=== PATIENT | female | born 1930 | race Caucasian/White ===

== ENCOUNTER 2018-02-11 06:35 | Observation (INO) | payer OTHER ==
[~2018-02-11] VITALS: Ht 152.4 cm; Wt 56.5 kg
--- NOTE | ~2018-02-11 | DSS ---
[facility] [place] [address] SHORT STAY SUMMARY Name: CHEMA DUENAS Room #: 205-P [facility] Brian Mackenzie#: [id number] Admission: 02/11/18 Attend Phys: Michelle Mccarthy MD, FA Discharge: 02/12/18 Date of : 02/24/30 Report #: [id number] THIS REPORT FOR: //name// CC: MICHELLE Heart DATE OF SERVICE: 02/12/2018 DISCHARGE DIAGNOSES: 1. Unstable angina. 2. Coronary artery disease. 3. Sick sinus syndrome. 4. Hyperlipidemia. 5. Atrial arrhythmias. 6. History of orthostatic hypotension. 7. Chronic back pain. CONSULTANTS: None. PROCEDURES: Left heart catheterization with placement of a single drug-eluting stent in the circumflex artery via the femoral approach. HISTORY OF PRESENT ILLNESS: The patient is an 87-year-old white female who was brought to the outpatient department for repeat cardiac catheterization. The patient has an extensive past medical history. She has had multiple stents in the past. She actually had a stent placed in her right coronary artery by Dr. Negrete at [facility] in 2008. She had a stent placed in her circumflex artery by Dr. Srinivasan at [facility] in 2009. She had previous stents placed in her LAD. In 2009, she was seen by Dr. Peres and had permanent pacemaker inserted for sick sinus syndrome. Her last heart catheterization in [address] Flynn showed all the stents were widely patent. Recently, she has been followed by Dr. Case. Her last nuclear stress test in 2014 showed no evidence of ischemia. However, recently she has been having frequent chest pain. It can occur at rest or with exertion. It does make her short of breath. It is usually relieved with nitroglycerin. Due to frequent chest pain, history of coronary artery disease and medical therapy, I recommended repeat cardiac catheterization. PAST MEDICAL HISTORY: Otherwise significant for back surgery, cholecystectomy, hemicolectomy, hernia repair, hysterectomy. She had a history of hypertension, hyperlipidemia. In the past, she had an episode of orthostatic hypotension, she has a history of hypothyroidism, chronic back pain. She actually had a recent nerve stimulator implanted in her back. She has had carpal tunnel surgery, cataract surgery. [facility] [address] [place] [address] SHORT STAY SUMMARY Name: CHEMA DUENAS Room #: 205-P [facility] Brian Mackenzie#: [id number] Admission: 02/11/18 Attend Phys: Michelle Mccarthy MD, FA Discharge: 02/12/18 Date of : 02/24/30 Report #: [id number] MEDICATIONS: On admission consisted of aspirin, Lipitor, Neurontin, hydrocodone, Imdur, Synthroid. She takes linaclotide for constipation, midodrine, Protonix, sotalol. ALLERGIES AND INTOLERANCES: She had an intolerance of SULFA DRUGS. PHYSICAL EXAMINATION: GENERAL: Elderly, frail-appearing female. VITAL SIGNS: Blood pressure 128/78, pulse 72. HEENT: Mucous members are moist. NECK: Veins nondistended. CHEST: Clear to auscultation. CARDIAC: Regular rate and rhythm. ABDOMEN: Soft. EXTREMITIES: No edema. SKIN: Warm and dry. NEUROLOGIC: Nonfocal. LABORATORY DATA: Her ECG showed an atrial paced rhythm with a first-degree AV block. Her lab work, sodium 140, potassium 4.4. Her creatinine was 0.8. Her cholesterol was 149, triglyceride 127, HDL 49, LDL 75. White blood cell count 6.2, hemoglobin 12.5. HOSPITAL COURSE: The patient was brought to the outpatient department. I performed a left heart catheterization from the right femoral artery. She was found to have normal left ventricular function. The stent in the proximal and mid LAD had no restenosis. The circumflex appeared to have a proximal 80% eccentric narrowing prior to stent, which appeared to be patent. The right coronary artery had a stent in its ostium that appeared to have a 50% restenosis. A flush injection was performed of this stent. She was then given heparin. She had been started on Plavix a day prior to the procedure. I then placed a single drug-eluting stent in the proximal circumflex. She tolerated this well. An Angio-Seal was placed. Following procedure, she had no significant chest pain, shortness of breath, arrhythmias. She did have some oozing from her right groin. She remained at bed rest. The following day, she was getting up with assistance, had no significant chest pain or complaints. The patient was discharged on her home medications that included aspirin 81 mg a day, Lipitor 40 mg a day, Neurontin 300 mg a day, hydrocodone as needed for back pain. I did suggest she discontinue the Imdur at this time. She was to continue Synthroid 50 mcg a day, linaclotide for constipation. Her blood pressure was elevated and I therefore suggested she discontinue the small dose of midodrine. She has nitroglycerin to take as needed for chest pain. She was to continue Protonix 40 mg a day, sotalol 40 mg twice a day. She was given a new prescription for Plavix 75 mg a day, ____ take for up to one year following placement of the drug-eluting stent. She was discharged to return to the care of Dr. Heart for routine medical care. She is scheduled to see me in my [address] [place] [address] SHORT STAY SUMMARY Name: CHEMA DUENAS Room #: 205-P [facility] Biran MLanny.#: [id number] Admission: 02/11/18 Attend Phys: Michelle Mccarthy MD, FA Discharge: 02/12/18 Date of : 02/24/[birth year] Report #: [id number] [facility] on 03/08/2018. Her prognosis is guarded due to multivessel coronary artery disease and advanced age. She is not a candidate for cardiac rehabilitation since she ambulates with a walker. The patient was to contact my office if she had recurrent chest pain, shortness of breath or bleeding. She will continue to have her pacemaker checked in the device clinic with my office. At the time of discharge, she had a blood pressure of 140/60, pulse of 70 and she was afebrile. <ELECTRONICALLY SIGNED> By: Michelle Mccarthy MD, [facility] 02/15/18 1821 0812 0845 Michelle Mccarthy MD, FAC /nt
--- NOTE | ~2018-02-11 | EKG ---
[place] [address] [facility] [place] [address] ELECTROCARDIOGRAM REPORT Name: CHEMA DUENAS Room #: REG [facility]#: [id number] Admission: 02/11/18 Attend Phys: Garret Mccarthy MD, FA Discharge: Date of : 02/24/30 Report #: [id number] THIS REPORT FOR: //name// [facility] Test Date: 2018-02-11 Test Time: 07:31:18 Pat Name: CHEMA DUENAS Department: Room: Gender: F Fruit Dumper: : 1930 Requested By: Garret Mccarthy Order Number: [id number] MD: Abran Davis Measurements Intervals [place] Rate: 74 P: [place]: 167 QRS: 30 QRSD: 99 T: 48 QT: 433 QTc: 481 Interpretive Statements Atrial-paced complexes with occasional atrial premature complexes Borderline low voltage, extremity leads Compared to ECG 08/09/2012 16:04:56 No significant change was found Electronically Signed On 02-11-2018 8:19:54 CDT by Abran Davis [email or web address] <ELECTRONICALLY SIGNED> By: Abran Davis MD, [facility] 02/11/18 0819 0 0 Abran Davis MD, [facility] /EPI
--- NOTE | ~2018-02-11 | CATHLAB ---
[facility] [place] [address] INVASIVE PROCEDURE REPORT Name: CHEMA DUENAS Room #: 205-P ADM IN .R.#: [id number] Admission: 02/11/18 Attend Phys: Garret Mccarthy MD Discharge: Date of : 02/24/30 Date of Service: 02/11/18 1354 Report #: [id number] THIS REPORT FOR: //name// APPROVED REPORT Study performed: 02/11/2018 07:50:37 Patient Details Patient Status: Out-Patient Room #: The patient is a 87 year-old female Event Personnel Garret Mccarthy District Administrative Assistant, Pamela Salgado, Garret Almendarez, Ella Roman Monitor, Mary, Herlinda RN RN, John Bolanos RN personnel interviewer Performed cath pciArt Access - R femoral artery* 31047 Initial Mod Sed Same Phys/QHP Gr5y [id number] 38827 Mod Sed Same Phys/QHP Ea 978367 Left Heart Cath w/or w/o Coronaries [id number] [facility] Place w/wo Plasty Single CIRC 726009 Hemostasis w/ Angioseal Indication Unstable angina Risk Factors Arterial Hypertension, Hypercholesterolemia Previous Procedures/Diagnoses Previous PCI Procedure Narrative The patient was brought electively to the Cardiac Catheterization Laboratory and was prepped and draped in a sterile manner. The right femoral was infiltrated with 1% Lidocaine subcutaneous anesthesia. A 6 fr sheath was inserted into the right femoral artery. Coronary angiography was performed using coronary diagnostic catheters. The right coronary system was accessed and visualized with a 3drc catheter. The left coronary system was accessed and visualized with a Diagnostic catheter. The left ventricle was accessed and visualized with a hand injection through jr4 catheter. Left ventricular/Aortic Valve gradient assessed via catheter pullback. Left ventriculogram was performed in STOCK projection. Pre-demployment femoral angiogram was performed . Closure device was deployed with a 6 Fr Angioseal. The patient tolerated the procedure well and there were no [facility] [address] [place] [address] INVASIVE PROCEDURE REPORT Name: CHEMA DUENAS Alpesh Room #: 205-P [facility] IN ..#: [id number] Admission: 02/11/18 Attend Phys: Garret Mccarthy MD Discharge: Date of : 02/24/30 Date of Service: 02/11/18 1354 Report #: [id number] complications associated with the procedure. There was no hematoma. Intraoperative Conscious Sedation Sedation start time: 08:09 Case end Time: 09:15 Versed 2 mg Fluoro Time: 10.24 minutes Dose: DAP 5643.90 cGycm2 647 mGy Contrast Type and Amount: Visipaque 170 ml Coronary Angiography The patient's coronary anatomy is right dominant. Diagnostic Cath Left Main 0% stenosis LAD proximal stent had 30% restenosis. Mid stent had no restenosis Circumflex proximal calcified eccentric 80% stenosis noted. Mid stent had no restenosis Right Coronary ostial stent appeared to have 50% restenosis Left Ventriculography The left ventricle is normal in size with normal contractility. The left ventricular ejection fraction is estimated to be 55-60%. Left ventricular wall motion abnormalities are not present. There is no mitral insufficiency. Unable to cannulate rca with jr4 catheter because of abnormal takeoff, and ostial location of stent. 3drc catheter was used and able to perform flush injection of rca. Unable to advance pigtail catheter over wire into left ventricle because of tortuous aorta. Therefore performed hand injection through jr4 catheter to perform left ventriculography. Hemodynamics The aortic pressure is 182/72 mmHg with a mean of 87 mmHg. The left ventricular pressure is 166/6 mmHg with a mean of mmHg. The left ventricular end diastolic pressure is 15 mmHg. There was no gradient across the aortic valve upon pullback. Pullback from the left ventricle to the aorta revealed no gradient across the aortic valve. PCI Technique Lesion Anticoagulation was achieved with Heparin. Patient was preloaded with Plavix. Percutaneous coronary intervention was performed on the proximal circumflex artery segment. The lesion stenosis prior to [facility] [address] [place] [address] INVASIVE PROCEDURE REPORT Name: HENRIQUECHEMA Room #: 205-P [facility] IN M.R.#: [id number] Admission: 02/11/18 Attend Phys: Garret Mccarthy MD Discharge: Date of : 02/24/30 Date of Service: 02/11/18 1354 Report #: [id number] intervention was 80% with HERMELINDA 3 flow. A 6 fr xb3.0 Guide Catheter was used to engage the lm ostium. A bmw Interventional Guidewire was used to cross the lesion. BALLOON DILATION A Balloon catheter 2.5 x 10 mm was inserted and inflated up to 14atm for 10seconds. Repeat angiography revealed the following post-dilatation results: 50% stenosis. STENT DEPLOYMENT A drug-eluting stent 15mm x 2.75 was inserted and inflated up to 11atm for 15seconds. Repeat angiography revealed the following post-stent deployment results: 0% stenosis. Final angiography reveals 0 % stenosis with HERMELINDA 3 flow. Conclusion 1. no significatn restenosis of stents in the proximal and mid lad 2. no restenosis of stent in the mid circumflex, although 80% stenosis noted in the proximal circumflex 3. mild restenosis noted of stent in the ostium of the rca 4. successful placement of a drug eluting stent in the proximal circumflex Recommendations Cardiac Rehabilitation Referral Aggressive Medical Therapy <ELECTRONICALLY SIGNED> By: Garret Mccarthy MD, [facility] 02/11/18 1354 1354 1354 Garret Mccarthy MD, FACC /INF
--- NOTE | ~2018-02-11 | EKG ---
[address] [address] ELECTROCARDIOGRAM REPORT Name: CHEMA DUENAS Room #: 205-P [facility] M.R.#: [id number] Admission: 02/11/18 Attend Phys: Garret Mccarthy MD, FA Discharge: Date of : 02/24/30 Report #: [id number] THIS REPORT FOR: //name// [facility] Test Date: 2018-02-11 Test Time: 10:42:37 Pat Name: CHEMA DUENAS Department: Room: 205 P Gender: F Dynamic Balancer: Zakiya BEDOYA : 1930 Requested By: Garret Mccarthy Order Number: [id number] MD: Abran Davis Measurements Intervals [place] Rate: 75 P: ID: 179 QRS: 47 QRSD: 95 T: 49 QT: 423 QTc: 473 Interpretive Statements Atrial-paced complexes Abnormal R-wave progression, early transition Compared to ECG 02/11/2018 07:31:18 Atrial premature complex(es) no longer present Electronically Signed On 02-11-2018 16:53:03 CDT by Abran Davis [email or web address] <ELECTRONICALLY SIGNED> By: Abran Davis MD, [facility] 02/11/18 6965 1042 1042 Abran Davis MD, [facility] /EPI
--- NOTE | ~2018-02-11 | EKG ---
[address] [address] ELECTROCARDIOGRAM REPORT Name: CHEMA DUENAS Room #: 205-P [facility] M.R.#: [id number] Admission: 02/11/18 Attend Phys: Garret Mccarthy MD, FA Discharge: Date of : 02/24/30 Report #: [id number] THIS REPORT FOR: //name// [facility] Test Date: 2018-02-12 Test Time: 06:55:57 Pat Name: CHEMA DUENAS Department: Room: 205 P Gender: F Stogie Packer: BS : 1930 Requested By: Garret Mccarthy Order Number: [id number] MD: Abran Davis Measurements Intervals [place] Rate: 75 P: [place]: 167 QRS: 29 QRSD: 97 T: 46 QT: 475 QTc: 531 Interpretive Statements Atrial-paced complexes Borderline low voltage, extremity leads Abnormal R-wave progression, early transition Prolonged QT interval Compared to ECG 02/11/2018 10:42:37 Prolonged QT interval now present Electronically Signed On 02-12-2018 8:14:47 CDT by Abran Davis [email or web address] <ELECTRONICALLY SIGNED> By: Abran Davis MD, [facility] 02/12/18 0814 0655 0655 Abran Davis MD, [facility] /EPI
[~2018-02-11 06:35] MED LIST: ADULT LOW DOSE81 MG PO; ALLEGRA180 MG PO; AMIGESIC500 MG PO; ASPIRIN EC81 M1 PO; CALCIUM 500 +1 EAC5 PO; GAVISCON500 MG PO; ISOSORBIDE DINI30 MG PO; LIPITOR40 MG PO; MULTI-VITAMIN1 EAC5 PO; MULTIPLE VITAM1 EAC3 PO; NAPROSYN250 MG; NEURONTIN 300300 M1 PO; PLAVIX 75 MG TA75 MG PO; PROTONIX40 M2 PO; RECLAST 55 MG/100 M IV; SORINE80 MG PO; SYNTHROID50 MCG PO; TOPROL XL25 MG PO; VAGIFEM25 MCG PO; [UNRECOGNIZED DRUG - OTHER] PO
[2018-02-11 07:32] VITALS: BP 187/84
[2018-02-11] MEDS ORDERED: NORCO 5-325 TA1 EACH PO (07:42)
[2018-02-11] MEDS ORDERED: NEURONTIN 300300 M1 PO (07:44)
[2018-02-11] MEDS ORDERED: ANUSOL-HC25 MG RECTAL (07:45)
[2018-02-11] MEDS ORDERED: IMDUR 30 MG TAB30 M1 PO (07:46)
[2018-02-11] MEDS ORDERED: LINZESS145 MCG PO (07:46)
[2018-02-11] MEDS ORDERED: MIDODRINE HCL 55 M1 PO (07:47)
[2018-02-11] MEDS ORDERED: NITROGLYCERIN0.4 MG PO (07:48)
[2018-02-11] MEDS ORDERED: PROTONIX40 M1 PO (07:48)
[2018-02-11] MEDS ORDERED: SORINE 80 MG TA80 M1 PO (07:49)
[2018-02-11 08:04] LABS: HEMATOCRIT 38.1 % (37.0-47.0); HEMOGLOBIN 12.5 gm/dL (12.0-15.0); MCH 27.1 pg (26.0-34.0); MCHC 32.9 g/dL (28.0-37.0); MCV 82.4 fL (80.0-100.0); RBC 4.62 mil/uL (4.20-5.00); RDW 14.6 % (10.5-14.5); WBC 6.2 thou/uL (4.0-11.0)
[2018-02-11 08:21] LABS: ANION GAP 7 mmol/L (7-16); BUN 11 mg/dL (7-18); CALCIUM 9.2 mg/dL (8.5-10.1); CHLORIDE 106 mmol/L (98-107); CO2 27 mmol/L (21-32); CREATININE 0.8 mg/dL (0.6-1.0); GLUCOSE 108 mg/dL (74-106); POTASSIUM 4.4 mmol/L (3.5-5.1); SODIUM 140 mmol/L (136-145)
[2018-02-11 08:28] LABS: CHOLESTEROL 149 mg/dL (<200); HDL CHOLESTEROL 49 mg/dL (>40); LDL CHOLESTEROL 75 mg/dL (<100); TRIGLYCERIDE 127 mg/dL (<150); VLDL 25 mg/dL (<40)
[2018-02-11 09:41] VITALS: BP 163/74
[2018-02-11 10:45] VITALS: BP 143/69
[2018-02-11 15:30] VITALS: BP 124/52
[2018-02-11 19:45] VITALS: BP 133/61
[2018-02-11 23:42] VITALS: BP 123/47
[2018-02-12 03:23] VITALS: BP 111/46
[2018-02-12 04:39] LABS: HEMATOCRIT 29.5 % (37.0-47.0); MCH 27.9 pg (26.0-34.0); MCHC 34.1 g/dL (28.0-37.0); MCV 81.8 fL (80.0-100.0); RBC 3.61 mil/uL (4.20-5.00); RDW 14.1 % (10.5-14.5); WBC 6.6 thou/uL (4.0-11.0)
[2018-02-12 04:54] LABS: HEMOGLOBIN 10.1 gm/dL (12.0-15.0)
[2018-02-12 07:39] VITALS: BP 150/62
[2018-02-12] MEDS ORDERED: CLOPIDOGREL75 MG PO (08:28)
[2018-02-12 10:16] VITALS: BP 150/62
[2018-02-12 11:28] VITALS: BP 140/66
== END 2018-02-12 12:39 | disposition home or self-care (01) ==
LOC: CATH 06:35 → 2N 09:07 → ENTRNSPT 02-12 12:22 → EDTRNSPTSTS 02-12 12:26 → 2N 02-12 12:39
PROVIDERS: Internal Medicine Cardiovascular Disease
DX: I25.110 Atherosclerotic heart disease of native coronary artery with unstable angina pectoris (principal); I49.5 Sick sinus syndrome; E78.5 Hyperlipidemia, unspecified; I49.9 Cardiac arrhythmia, unspecified; I10 Essential (primary) hypertension; E03.9 Hypothyroidism, unspecified; G89.29 Other chronic pain; M54.9 Dorsalgia, unspecified; Z86.79 Personal history of other diseases of the circulatory system; Z90.49 Acquired absence of other specified parts of digestive tract; Z90.710 Acquired absence of both cervix and uterus; Z98.890 Other specified postprocedural states

== ENCOUNTER → 2019-05-13 | Outpatient (CLI) | payer OTHER ==
[~2019-05-13] MED LIST changes: +ANUSOL-HC25 MG RECTAL; +CLOPIDOGREL75 MG PO; +IMDUR 30 MG TAB30 M1 PO; +LINZESS145 MCG PO; +MIDODRINE HCL 55 M1 PO; +NITROGLYCERIN0.4 MG PO; +NORCO 5-325 TA1 EACH PO; +PROTONIX40 M1 PO; +SORINE 80 MG TA80 M1 PO
--- NOTE | 2019-05-25 17:36 | SLE ---
[facility] [place] [address] POLYSOMNOGRAPHY STUDY Name: CHEMA DUENAS Room #: REG [facility]#: [id number] Admission: 05/13/19 Attend Phys: Sadiq Coley MD Discharge: Date of : 02/24/30 Report #: [id number] THIS REPORT FOR: //name// CC: Sadiq Case SLEEP STUDY ATTENDING PHYSICIAN: Dr. Case The patient is 89 years old who weighs 126 pounds with a BMI of 26.3. The patient's Hernshaw score was 10. The patient underwent diagnostic sleep study performed at [facility]. During the night study, the patient spent 474 minutes in bed and slept for 375 minutes with a sleep efficiency of 79%. Sleep latency was 19 minutes with a REM latency of 93 minutes. Sleep architecture showed normal stage 1 sleep, increased stage 2 sleep, reduced slow wave and normal REM sleep. During the night of the study, the patient had 26 obstructive apneas, no mixed apneas, 2 central apneas and 9 hypopneas. The patient's apnea hypopnea index was 5.9 per hour with a REM index of 7.4 per hour and a supine index of 6.9 per hour. EKG monitoring revealed an average heart rate of 72 beats per minute. No sustained arrhythmias observed. PLMs were seen at an index of 13 per hour and none caused EEG arousals. Nocturnal oximetry study revealed an average oxygen saturation of 93% with a lowest of 81%. 2.6 minutes were spent in oxygen saturation of less than 89%. Due to low AHI, the patient did not meet the split night criteria for CPAP initiation. IMPRESSION: 1. Mild sleep apnea-hypopnea syndrome at an AHI of 5.9 per hour. 2. No clinically significant nocturnal hypoxia. 3. Mild PLMs without any EEG arousals. This does not need to be treated. RECOMMENDATIONS: 1. The patient has mild sleep apnea. If the patient is clinically symptomatic or has comorbid conditions, then the patient's sleep apnea can be treated with either CPAP or oral appliance. 2. Once the patient is treated with above, then the patient can be followed up for an improvement in clinical symptoms. [facility] [address] [place] [address] POLYSOMNOGRAPHY STUDY Name: HENRIQUECHEMA J Room #: [employer]#: [id number] Admission: 05/13/19 Attend Phys: Sadiq Coley MD Discharge: Date of : 02/24/[birth year] Report #: [id number] 3. Avoid BUILDING CARPENTER HELPER depressants. 4. Cautioned regarding driving until symptoms of sleep apnea resolve with the above recommendations. <ELECTRONICALLY SIGNED> By: Sadiq Coley MD 05/25/19 1736 0217 0302 Sadiq Coley MD /nt
== END ==
LOC: SLEEPLAB 09:54
DX: G47.33 Obstructive sleep apnea (adult) (pediatric) (principal)